=== PATIENT | female | born 1975 ===

== ENCOUNTER 2017-07-18 08:30 | Emergency (ER) | payer MEDICAID ==
[2017-07-18 08:30] VITALS: BMI 32.4
[2017-07-18 08:44] VITALS: BP 125/76; PULSE 72; RESP 20; TEMP 98; O2SAT 98
[2017-07-18] MEDS ORDERED: Sodium Chloride 0.9% 1,000 ML IV STA (09:10)
--- NOTE | 2017-07-18 09:22 | ED PDOC ---
Syncope/Near Syncope/Dizziness Time Seen by Provider: 07/18/17 08:55 Chief Complaint (Nursing): Dizziness/Lightheaded Chief Complaint (Provider): DizzinessLightheaded History Per: Patient History/Exam Limitations: no limitations Onset/Duration Of Symptoms: Days (x 1) Current Symptoms Are (Timing): Still Present Possible Causative Factor(s): denies: Vertigo Additional Complaint(s): Ksenia is a 42 year old female who presents to the Emergency Department complaining of a headache since yesterday. Patient states took her own blood pressure which read 90/60. Admits to taking medication tab (? name) from [facility] for low blood pressure and went to bed thereafter. Admits to taking advil with no relief. Earlier today, patient was getting her daughter ready for school where she felt lightheaded and saw stars. Per family member, she passed out for 3 mins. Denies seizure-like activity, postictal period, incontinence, chest pain, head injury, and palpitations. Claims she stopped antidepressants on her own. PMD states this is why she is having headaches. PMD: No Family Provider - Symptoms Of CVA Recent Head Trauma: No Past Medical History Reviewed: Historical Data, Nursing Documentation, Vital Signs Vital Signs: Last Vital Signs Temp 98 F 07/18/17 08:41 Pulse 72 07/18/17 08:41 Resp 20 07/18/17 08:41 BP 125/76 07/18/17 08:41 Pulse Ox 98 07/18/17 08:41 - Medical History PMH: HTN - Surgical History Surgical History: (2) - Family History Family History: States: Unknown Family Hx - Social History Current smoker - smoking cessation education provided: No Ex-Smoker (has not smoked in the last 12 months): No Alcohol: Social - Home Medications Home Medications: Ambulatory Orders Medication Instructions Recorded Cyclobenzaprine [Cyclobenzaprine 10 mg PO Q8 PRN #20 tab 09/11/16 HCl] Ibuprofen [Motrin] 600 mg PO Q6 PRN #30 tab 09/11/16 - Allergies Allergies/Adverse Reactions: Allergies Allergy/AdvReac Type Severity Reaction Status Date / Time No Known Allergies Allergy Verified 09/11/16 09:02 Review of Systems ROS Statement: Except As Marked, All Systems Reviewed And Found Negative Cardiovascular: Negative for: Chest Pain, Palpitations Genitourinary Female: Negative for: Incontinence Neurological: Negative for: Seizures (postictal seizures) Physical Exam - Reviewed Nursing Documentation Reviewed: Yes Vital Signs Reviewed: Yes - Physical Exam Appears: Positive for: Non-toxic Head Exam: Positive for: ATRAUMATIC, NORMAL INSPECTION, NORMOCEPHALIC Skin: Positive for: Normal Color, Warm, Dry Eye Exam: Positive for: Normal appearance, EOMI, PERRL Neck: Positive for: Normal Cardiovascular/Chest: Positive for: Regular Rate, Rhythm Respiratory: Positive for: Normal Breath Sounds Gastrointestinal/Abdominal: Positive for: Normal Exam, Bowel Sounds, Soft Back: Negative for: Vertebral Tenderness Extremity: Positive for: Normal ROM Neurologic/Psych: Positive for: Alert, superintendent measurement II-XII, Oriented, Gait (WNL). Negative for: Motor/Sensory Deficits, Aphasia, Facial Droop - Laboratory Results Result Diagrams: 07/18/17 09:42 07/18/17 09:42 - ECG Interpretation Of ECG: NSR @ 69, no ST-T changes. O2 Sat by Pulse Oximetry: 98 (RA) Medical Decision Making Medical Decision Making: Time: 09:10 Initial Impression: Syncope Initial Plan: - Type and Screen - CT Head without Contrast - EKG - CMP - CBC - Chest X-ray - Sodium Chloride 0.9% 1,000 ml IV 1,000 mls/hr - Ortho Blood Pressure - Urinalysis Time: 10:04 Chest X-Ray FINDINGS: LUNGS: No active pulmonary disease. PLEURA: No significant pleural effusion identified. No pneumothorax apparent. CARDIOVASCULAR: Normal. OSSEOUS STRUCTURES: No significant abnormalities. VISUALIZED UPPER ABDOMEN: Normal. OTHER FINDINGS: None. IMPRESSION: No acute cardiopulmonary disease appreciated. Time: 10:54 CT Head without Contrast FINDINGS: HEMORRHAGE: No intracranial hemorrhage. BRAIN: Normal santos-white matter differentiation and density are appreciated throughout the cerebrum and cerebellum with the brainstem appearing unremarkable as well. There is no mass effect. There is no suspicious extra-axial fluid collection in the midline brain anatomy appears diffusely unremarkable. VENTRICLES: Unremarkable. No hydrocephalus. CALVARIUM: Unremarkable. PARANASAL SINUSES: Unremarkable as visualized. No significant inflammatory changes. MASTOID AIR CELLS: Unremarkable as visualized. No inflammatory changes. OTHER FINDINGS: None. IMPRESSION: Normal appearing CT of the Head. Follow-up CT or MRI may be utilized as clinically warranted. Scribe Attestation: Documented by Salbador Walker, acting as a scribe for Letha Wharton MD Provider Scribe Attestation: All medical record entries made by the Scribe were at my direction and personally dictated by me. I have reviewed the chart and agree that the record accurately reflects my personal performance of the history, physical exam, medical decision making, and the department course for this patient. I have also personally directed, reviewed, and agree with the discharge instructions and disposition. Disposition - Clinical Impression Clinical Impression: Syncope - Patient ED Disposition Is Patient to be Admitted: No - Disposition Referrals: Patricia Hinkle [Family Provider] - Disposition: Routine/Home Disposition Time: 11:50 Condition: STABLE Instructions: Syncope (ED) Forms: [employer] (Citizen [place])
[2017-07-18 09:49] LABS: BASO % 0.5 % (0.0-2.0); EOS # 0.1 K/uL (0.0-0.7); EOS % 1.9 % (0.0-4.0); HEMATOCRIT 43.2 % (34.0-47.0); LYMPH # 2.1 K/uL (1.0-4.3); LYMPH % 30.7 % (20.0-40.0); MEAN CELL VOLUME 83.8 fl (81.0-99.0); MEAN CORPUSCULAR HEMOGLOBIN 27.9 pg (27.0-31.0); MEAN CORPUSCULAR HGB CONC 33.3 g/dL (33.0-37.0); MEAN PLATELET VOLUME 10.7 fl (7.2-11.7); MONO # 0.5 K/uL (0.0-0.8); MONO % 7.3 % (0.0-10.0); NEUT % 59.6 % (50.0-75.0); NRBC % 0.1 % (0.0-0.0); RED CELL DISTRIBUTION WIDTH 13.2 % (11.5-14.5); WHITE BLOOD COUNT 6.7 K/uL (4.8-10.8)
[2017-07-18 10:02] LABS: ALB/GLOB RATIO 1.4 (1.0-2.1); ALKALINE PHOSPHATASE 84 U/L (38-126); ALT/SGPT 45 U/L (9-52); AST/SGOT 23 U/L (14-36); BLOOD UREA NITROGEN 12 mg/dl (7-17); CALCIUM 9.5 mg/dL (8.4-10.2); CARBON DIOXIDE 25 mmol/L (22-30); CHLORIDE 104 mmol/L (98-107); GFR AFRICAN-AMERICAN > 60; GLUCOSE,RANDOM 109 mg/dL (65-105); POTASSIUM 3.9 MMOL/L (3.6-5.0); SODIUM 140 mmol/l (132-148); TOTAL PROTEIN 8.3 G/DL (6.3-8.2)
--- NOTE | 2017-07-18 10:06 | RAD ---
HISTORY: Syncope COMPARISON: No prior. TECHNIQUE: Chest PA and lateral FINDINGS: LUNGS: No active pulmonary disease. PLEURA: No significant pleural effusion identified. No pneumothorax apparent. CARDIOVASCULAR: Normal. OSSEOUS STRUCTURES: No significant abnormalities. VISUALIZED UPPER ABDOMEN: Normal. OTHER FINDINGS: None. IMPRESSION: No acute cardiopulmonary disease appreciated.
[2017-07-18 10:36] LABS: RBC URINE 3 /hpf (0-3); URINE BILIRUBIN NEGATIVE (NEGATIVE); URINE BLOOD NEGATIVE (NEGATIVE); URINE COLOR YELLOW (YELLOW); URINE GLUCOSE (UA) NEG (Normal); URINE KETONE NEGATIVE (NEGATIVE); URINE LEUKOCYTE ESTERASE NEG Leu/uL (Negative); URINE PROTEIN NEGATIVE (NEGATIVE); URINE UROBILINOGEN 0.2-1.0 mg/dL (0.2-1.0); WBC URINE < 1 /hpf (0-5)
--- NOTE | 2017-07-18 10:55 | CT ---
PROCEDURE: CT HEAD WITHOUT CONTRAST. HISTORY: Syncope COMPARISON: None available. TECHNIQUE: Axial computed tomography images were obtained through the head/brain without intravenous contrast. Radiation dose: Total exam DLP = 831.85 mGy-cm. This CT exam was performed using one or more of the following dose reduction techniques: Automated exposure control, adjustment of the mA and/or kV according to patient size, and/or use of iterative reconstruction technique. FINDINGS: HEMORRHAGE: No intracranial hemorrhage. BRAIN: Normal santos-white matter differentiation and density are appreciated throughout the cerebrum and cerebellum with the brainstem appearing unremarkable as well. There is no mass effect. There is no suspicious extra-axial fluid collection in the midline brain anatomy appears diffusely unremarkable. VENTRICLES: Unremarkable. No hydrocephalus. CALVARIUM: Unremarkable. PARANASAL SINUSES: Unremarkable as visualized. No significant inflammatory changes. MASTOID AIR CELLS: Unremarkable as visualized. No inflammatory changes. OTHER FINDINGS: None. IMPRESSION: Normal appearing CT of the Head. Follow-up CT or MRI may be utilized as clinically warranted.
--- NOTE | 2017-07-18 11:18 | CARD ---
APPROVED REPORT EKG Measurement Heart [id number] ID [id number] <Conclusion> Normal sinus rhythm Normal ECG
== END 2017-07-18 12:05 | disposition home or self-care (01) ==
LOC: H.ER 08:30
DX: R55 Syncope and collapse (principal); I10 Essential (primary) hypertension
CPT/HCPCS: 70450; 71020; 80053; 81003; 81025; 82948; 85025; 86850; 86900; 93005; 99283; J7040